=== PATIENT | female | born 1945 | race Hispanic/Latino ===

== ENCOUNTER 2022-12-17 00:28 | Emergency (ER) | payer SELFPAY ==
[~2022-12-17] VITALS: Ht 154.9 cm; Wt 53.5 kg
[2022-12-17] MEDS ORDERED: IBUPROFEN 400 MG TABLET ONE (00:31)
[2022-12-17 00:45] VITALS: TEMP 103
[2022-12-17 00:49] LABS: BASOPHILS # (AUTO) 0.03 K/uL (0.00-0.20); BASOPHILS % (AUTO) 0.3 % (0.0-5.0); EOSINOPHILS # (AUTO) 0.02 K/uL (0.00-0.70); EOSINOPHILS % (AUTO) 0.2 % (0.0-8.0); HEMATOCRIT 37.9 % (36-48); IMMATURE GRANULOCYTE ABSOLUTE 0.07 K/uL (0-1); LYMPHOCYTES # (AUTO) 0.6 K/uL (1.0-4.8); LYMPHOCYTES % (AUTO) 5.8 % (21.0-51.0); MEAN CORPUSCULAR HEMOGLOBIN 30.9 pg (27.0-33.0); MEAN CORPUSCULAR HGB CONC 33.2 g/dL (32.0-36.0); MEAN CORPUSCULAR VOLUME 92.9 fL (79-99); MONOCYTES % (AUTO) 0.4 % (3.0-13.0); NEUTROPHILS # (AUTO) 9.4 K/uL (1.8-7.7); NEUTROPHILS % (AUTO) 92.6 % (40.0-77.0); PLATELET COUNT (AUTO) 261 K/uL (130-400); RED BLOOD CELL COUNT(AUTO) 4.08 MIL/uL (4.00-5.50); RED CELL DISTRIBUTION WIDTH 12.7 % (11.0-15.5); WHITE BLOOD COUNT (AUTO) 10.2 K/uL (4.8-10.8)
[2022-12-17 00:52] LABS: APPEARANCE,URINE CLEAR (CLEAR); BILIRUBIN,URINE NEGATIVE (NEGATIVE); COLOR,URINE LIGHT-YELLOW (YELLOW); GLUCOSE, URINE (UA) NEGATIVE (NEGATIVE); KETONES,URINE NEGATIVE (NEGATIVE); LEUKOCYTE ESTERASE ,URINE NEGATIVE Leu/uL (NEGATIVE); NITRATE,URINE NEGATIVE (NEGATIVE); OCCULT BLOOD,URINE NEGATIVE (NEGATIVE); PH,URINE 6.5 (5.0-8.0); PROTEIN,URINE NEGATIVE (NEGATIVE); UROBILINOGEN,URINE 0.2 mg/dL (0.2-1.0)
[2022-12-17 00:53] LABS: ADD UA MICROSCOPIC NO
[2022-12-17] MEDS ORDERED: 0.9%NACL 1000ML 2,000 ML IV ONE (01:00)
[2022-12-17] MEDS ORDERED: IBUPROFEN 800 MG TAB PO ONE (01:00)
[2022-12-17 01:05] LABS: SARS-CoV-2, RNA, NAAT POSITIVE SARS CoV-2 (NEGATIVE)
[2022-12-17 01:06] LABS: INFLUENZA TYPE A Negative For Type A (NEGATIVE); INFLUENZA TYPE B Negative For Type B (NEGATIVE)
[2022-12-17 01:07] LABS: CREATININE 0.8 mg/dL (0.5-1.5); POTASSIUM 3.4 mmol/L (3.5-5.1)
[2022-12-17 01:11] LABS: ALBUMIN 3.5 g/dL (3.5-5.0); BILIRUBIN,TOTAL 0.4 mg/dL (0.2-1.0); TOTAL PROTEIN, SERUM 6.8 g/dL (6.0-8.3)
[2022-12-17] MEDS ORDERED: OMEP40CA21 PO (01:13)
[2022-12-17] MEDS ORDERED: PRED20TA3 PO (01:13)
[2022-12-17] MEDS ORDERED: IBUP-1493 PO (01:13)
[2022-12-17] MEDS ORDERED: ONDA-104 PO (01:13)
[2022-12-17 01:18] LABS: WBC MORPHOLOGY CONSISTENT W/DIFF
[2022-12-17 01:48] VITALS: BP 132/69; PULSE 110; RESP 20; O2SAT 95
== END 2022-12-17 01:54 | disposition home or self-care (01) ==
LOC: EDBD 00:28 → EDH 00:28
DX: U07.1 COVID-19 (principal); Z79.1 Long term (current) use of non-steroidal anti-inflammatories (NSAID); Z79.52 Long term (current) use of systemic steroids; Z79.899 Other long term (current) drug therapy
CPT/HCPCS: 99285; 96360; 71045; 96361; 87635; 84484; 80053; 85025; 87040 ×2; 87804 ×2; 83605; 81003; 36415; 93005; C9803; J7030